=== PATIENT | female | born 1950 | race Two or more races ===

== ENCOUNTER 2022-02-23 05:35 | Day surgery (SDC) | payer OTHER ==
[~2022-02-23 05:35] MED LIST: CHILDREN'S ASPI81 MG PO; PLAVIX75 MG PO; ROSUVAST PO; TOPROL XL50 M1 PO; VASOTEC20 M1 PO
[2022-02-23] MEDS ORDERED: CEPHALEXIN500 M1 PO (11:05)
[2022-02-23] MEDS ORDERED: CILOXAN5 ML OTIC (11:07)
== END 2022-02-23 14:05 | disposition home or self-care (01) ==
LOC: CIR.AMB 05:35
PROVIDERS: ATTEND Otolaryngology Otology & Neurotology
DX: H70.11 Chronic mastoiditis, right ear (principal); H90.A11 Conductive hearing loss, unilateral, right ear with restricted hearing on the contralateral side; Z91.013 Allergy to seafood; I25.10 Atherosclerotic heart disease of native coronary artery without angina pectoris; Z95.5 Presence of coronary angioplasty implant and graft; E78.00 Pure hypercholesterolemia, unspecified; E66.9 Obesity, unspecified; Z79.02 Long term (current) use of antithrombotics/antiplatelets; Z79.82 Long term (current) use of aspirin